=== PATIENT | female | born 1950 | race Caucasian/White ===

== ENCOUNTER 2018-05-27 07:37 | Day surgery (SDC) | payer MEDICARE, OTHER ==
[~2018-05-27 07:37] MED LIST: BUSPAR15 MG OR; CRANBERRY1 TAB OR; PREVPAC OR; PROZAC40 MG OR; PROZAC40 MG PO; TYLENOL650 MG PO; XANAX0.5 MG PO; ZOLOFT50 MG
[2018-05-27 09:45] VITALS: BP 124/63
== END 2018-05-27 09:59 | disposition home or self-care (01) ==
LOC: ENDO 07:37 → ORM 13:00
PROVIDERS: ATTEND Surgery
PROC: 0DB78ZX Excision of Stomach, Pylorus, Via Natural or Artificial Opening Endoscopic, Diagnostic (ICD-10-PCS; principal; 2018-05-27)
PROC: 0DJD8ZZ Inspection of Lower Intestinal Tract, Via Natural or Artificial Opening Endoscopic (ICD-10-PCS; 2018-05-27)
DX: K29.60 Other gastritis without bleeding (principal); K44.9 Diaphragmatic hernia without obstruction or gangrene; R63.4 Abnormal weight loss; R19.7 Diarrhea, unspecified; K64.4 Residual hemorrhoidal skin tags

== ENCOUNTER 2018-12-15 12:06 | Observation (INO) | payer MEDICARE, OTHER ==
[~2018-12-15] VITALS: Ht 154.9 cm; Wt 49.0 kg
--- NOTE | 2018-12-15 12:16 | NUR ---
PT TO ROOM FOR EXAM, PT STATES THAT SHE ALWAYS PASSES OUT WITH BLOOD DRAWS OR IV. STATES CODED ONE TIME IN LAB WHILE HAVING BLOOD DRAWN
[2018-12-15 12:43] LABS: HEMATOCRIT 44.3 % (37.0-47.0); HEMOGLOBIN 14.7 g/dl (12.0-16.0); IMMATURE GRANULOCYTES 0.3 % (0.0-5.0); MEAN CELL VOLUME 94.9 fL CALC (80.0-100.0); MEAN CORPUSCULAR HGB 31.5 pG CALC (26.0-32.0); MEAN CORPUSCULAR HGB CONC 33.2 g/L CALC (32.0-36.0); NEUT# 5.04 thou/uL (2.00-7.15); RED BLOOD COUNT 4.67 mill/uL (4.20-5.60); RED CELL DISTRI WIDTH 13.2 % (11.5-15.5)
--- NOTE | 2018-12-15 12:51 | NUR ---
PT TO RADIOLOGY VIA WC. ABLE TO STAND AND TRANSFER SELF WITHOUT ASSIST OR SOB
--- NOTE | 2018-12-15 12:56 | NUR ---
PT RETURNED FROM RADIOLOGY. ADVISED OF WAIT TIME. NO APPARENT DISTRESS. IV SITE HEALTHY.
--- NOTE | 2018-12-15 13:13 | NUR ---
PT AMBULATED TO BR AND BACK. SATS UPON RETURN AT 84% RA. O2 2L/M VIA NC APPLIED IMPROVED TO 94%. PROVIDER ADVISED.
[2018-12-15 13:20] LABS: ALBUMIN 4.3 g/dL (3.2-5.0); ALKALINE PHOSPHATASE 91 u/l (38-126); ANION GAP 13 (6-22 (CALC)); BUN 12 mg/dL (8-23); BUN/CREATININE RATIO 20 (12-20 (CALC)); CARBON DIOXIDE 25 mmol/l (22-30); CHLORIDE 107 mmol/l (95-108); CREATININE 0.6 mg/dL (0.5-1.0); GFR > 60 ML/MIN (>=60 (CALC)); GFR FOR AFR.AMER. > 60 ML/MIN (>=60 (CALC)); POTASSIUM 3.9 mmol/l (3.5-5.1); SGOT/AST 24 u/l (9-36); SODIUM 141 mmol/l (137-146)
[2018-12-15 13:23] LABS: BILIRUBIN, TOTAL 0.5 mg/dL (0.0-1.4)
[2018-12-15 13:34] LABS: URINE BILIRUBIN - DIPSTICK NEGATIVE (NEGATIVE); URINE BLOOD DIPSTICK SMALL (NEGATIVE); URINE COLOR YELLOW; URINE GLUCOSE - DIPSTICK NEGATIVE (NEGATIVE); URINE KETONE TRACE mg/dL (NEGATIVE); URINE LEUK ESTERASE NEGATIVE (NEGATIVE); URINE NITRITE - DIPSTICK NEGATIVE (Negative); URINE PH 6.5 (4.5-8.0); URINE PROTEIN - DIPSTICK NEGATIVE (NEG-TRACE); URINE UROBILINOGEN - DIPSTICK 0.2 E.U./dL (0.2)
[2018-12-15 13:46] LABS: URINE EPITHELIAL CELLS FEW EPI/hpf (0-FEW)
--- NOTE | 2018-12-15 13:51 | NUR ---
PROVIDER AT BEDSIDE TO FURTHER EVALUATE PT. POC DISCUSSED.
--- NOTE | 2018-12-15 14:18 | NUR ---
BAÑUELOS WALK DONE WITH PATIENT OFF CANNULA 02. WALKED APPROX 100 STEPS, RETURNED TO BED. SAT 82%, HR INCREASED TO 115.
--- NOTE | 2018-12-15 14:34 | NUR ---
EXTENSIVE DISCUSSION WITH PATIENT REGARDING DISEASE PROCESS, HOME O2, AND ADMISSION. PT REPORTS HER SPOUSE IS IN [place] AND NOT DOING WELL. ALSO STATES SHE HAS M[employer]LE HOME PETS SHE MUST ACCOUNT FOR THEIR CARE. ADVISED TO STAY FOR ADMISSION AND FURTHERED CARE.
--- NOTE | 2018-12-15 14:56 | NUR ---
PT MEDICATED W/XANAX PO PER PROVIDER ORDER.PT HI FOWLERS IN BED. O2 2L/M VIA NC CONTINUES. SATS 92%
--- NOTE | 2018-12-15 16:55 | NUR ---
REPORT PROVIDED TO AYANA PARIKH, ON MEDSURG. IV ABT IN PROGRESS. IV SITE HEALTHY. PT TO MEDSURG VIA STRETCHER IN STABLE CONDITION.
[2018-12-15 17:06] VITALS: BP 132/61
--- NOTE | 2018-12-15 17:29 | NUR ---
PT HAD COME IN VIA STRETCHER. WAS A STAND BY ASSIST TO SCALE THEN TO BED. ASSESSMENT DONE. PT IS A&O X3. TELE IN PLACE. PT DENIES PAIN AT THIS TIME. O2 AT 2L VIA NC. SAFETY PRECAUTIONS REINFORCED AND CALL LIGHT IN REACH.
[2018-12-15 20:02] VITALS: BP 119/65
--- NOTE | 2018-12-15 20:14 | NUR ---
ASSESSMENT COMPLETED; O2 INFUSING PER NC @2LITERS/MIN PER ORDER; NO DISTRESS NOTED; REPORTS PRODUCTIVE COUGH, NONE TO INSPECT AT THIS TIME. UPDATED ON POC AND VERBALIZES UNDERSTANDING. ENCOURAGED TO CALL FOR ANY NEEDS. CALL LIGHT IS IN REACH.
--- NOTE | 2018-12-15 22:15 | NUR ---
PT. IS RESTING IN BED WITH EYES CLOSED. RESP. EVEN AND UNLABORED. CALL LIGHT IS IN REACH.
[2018-12-15 23:50] VITALS: BP 108/56
--- NOTE | 2018-12-15 23:50 | NUR ---
SCHEDULED SOLU-MEDROL GIVEN AND VSS; DENIES NEEDS AND VOICES NO CONCERNS. CALL LIGHT IS IN REACH.
--- NOTE | 2018-12-16 02:10 | NUR ---
PT. RESTING IN BED WITH EYES CLOSED; NO DISTRESS NOTED; CALL LIGHT IS REACH. WILL CONTINUE TO MONITOR.
[2018-12-16 03:37] VITALS: BP 106/50
--- NOTE | 2018-12-16 03:37 | NUR ---
VSS; NO DISTRESS NOTED; PT. ASSISTED TO AND FROM THE BATHROOM. PT. REPORTS SHE FEELS THOUGH SHE MAY BE GETTING A URINARY TRACT INFECTION, URINE INSPECTED AND IS CLEAR DARK YELLLOW; ENCOURAGED ORAL INTAKE AND CRANBERRY JUICE PROVIDED; PT. IS INSTRUCTED IF SYMPTOMS PERSIST TO SPEAK WITH MD IN AM.
[2018-12-16 06:00] LABS: HEMATOCRIT 38.4 % (37.0-47.0); IMMATURE GRANULOCYTES 0.9 % (0.0-5.0); MEAN CELL VOLUME 97.7 fL CALC (80.0-100.0); MEAN CORPUSCULAR HGB 32.3 pG CALC (26.0-32.0); MEAN CORPUSCULAR HGB CONC 33.1 g/L CALC (32.0-36.0); NEUT# 8.15 thou/uL (2.00-7.15); RED BLOOD COUNT 3.93 mill/uL (4.20-5.60); RED CELL DISTRI WIDTH 13.2 % (11.5-15.5)
[2018-12-16 06:10] LABS: HEMOGLOBIN 12.7 g/dl (12.0-16.0)
[2018-12-16 06:23] LABS: ALBUMIN 3.7 g/dL (3.2-5.0); ALKALINE PHOSPHATASE 77 u/l (38-126); AMYLASE 62 u/l (30-110); ANION GAP 13 (6-22 (CALC)); BUN 19 mg/dL (8-23); BUN/CREATININE RATIO 35 (12-20 (CALC)); CARBON DIOXIDE 22 mmol/l (22-30); CHLORIDE 109 mmol/l (95-108); CREATININE 0.5 mg/dL (0.5-1.0); GFR > 60 ML/MIN (>=60 (CALC)); GFR FOR AFR.AMER. > 60 ML/MIN (>=60 (CALC)); LIPASE 134 u/l (23-300); MAGNESIUM 1.8 mg/dL (1.6-2.3); POTASSIUM 3.8 mmol/l (3.5-5.1); SGOT/AST 21 u/l (9-36); SODIUM 139 mmol/l (137-146)
[2018-12-16 06:26] LABS: BILIRUBIN, TOTAL 0.2 mg/dL (0.0-1.4)
[2018-12-16 07:26] VITALS: BP 108/53
--- NOTE | 2018-12-16 08:00 | NUR ---
ASSESSMENT DONE. TELE IN PLACE. PT IS A&O X3. PT DENIES PAIN AT THIS TIME. O2 AT 2L VIA NC. CALL LIGHT IN REACH.
[2018-12-16 11:13] VITALS: BP 107/60
--- NOTE | 2018-12-16 12:13 | NUR ---
PT IS EATING HER LUNCH. PT STATED SHE WANTS TO GO HOME. WAITING FOR DOCTOR. PT DENIES ANY OTHER NEEDS AT THIS TIME. CALL LIGHT IN REACH.
[2018-12-16] MEDS ORDERED: LEVAQUIN750 MG PO (15:29)
[2018-12-16] MEDS ORDERED: PREDNISONE10 MG PO (15:29)
[2018-12-16] MEDS ORDERED: IPRATROPIU0.5 MG/3 M IN (15:29)
[2018-12-16 16:00] VITALS: BP 134/61
--- NOTE | 2018-12-16 16:07 | NUR ---
NO S/S OF DISTRESS NOTED AT THIS TIME. PT STATED READY TO GO BUT WAITING FOR THEM TO BRING 02 SO SHE CAN TAKE IT HOME. CALL LIGHT IN REACH.
--- NOTE | 2018-12-16 17:38 | NUR ---
Discharge instructions given. Patient verbalizes understanding of same. Discharged in stable condition via Wheelchair to Home with staff. All belongings sent with pt.
== END 2018-12-16 17:28 | disposition home or self-care (01) ==
LOC: ED 12:06 → ED-I 14:00 → ED 15:55 → MS2 15:56
PROVIDERS: ADMIT Internal Medicine Nephrology; ATTEND Internal Medicine Nephrology
DX: J44.1 Chronic obstructive pulmonary disease with (acute) exacerbation (principal); J96.21 Acute and chronic respiratory failure with hypoxia; I10 Essential (primary) hypertension; F41.9 Anxiety disorder, unspecified; F32.9 Major depressive disorder, single episode, unspecified; F17.210 Nicotine dependence, cigarettes, uncomplicated; Z86.74 Personal history of sudden cardiac arrest; Z95.0 Presence of cardiac pacemaker; R06.02 Shortness of breath; R05 Cough
CPT/HCPCS: J1650

== ENCOUNTER 2023-04-27 09:19 | Emergency (ER) | payer MEDICARE, OTHER ==
[~2023-04-27] VITALS: Ht 154.9 cm; Wt 42.3 kg
[~2023-04-27 09:19] MED LIST changes: +IPRATROPIU0.5 MG/3 M IN; +LEVAQUIN750 MG PO; +PREDNISONE10 MG PO
[2023-04-27 09:34] VITALS: BP 147/72
[2023-04-27 10:00] VITALS: BP 147/70
[2023-04-27] MEDS ORDERED: AMOX/K CLAV875 M1 PO (10:39)
[2023-04-27] MEDS ORDERED: PROBIOTIC FORMU1 CAP PO (10:39)
[2023-04-27 10:48] VITALS: BP 138/72
== END 2023-04-27 10:50 | disposition home or self-care (01) ==
LOC: ED 09:19
DX: K04.7 Periapical abscess without sinus (principal); I10 Essential (primary) hypertension; J44.9 Chronic obstructive pulmonary disease, unspecified; F32.A Depression, unspecified; F17.290 Nicotine dependence, other tobacco product, uncomplicated; Z95.0 Presence of cardiac pacemaker

== ENCOUNTER 2024-07-09 09:29 | Emergency (ER) | payer MEDICARE, OTHER ==
[~2024-07-09] VITALS: Ht 154.9 cm; Wt 42.6 kg
[2024-07-09] VITALS (10 sets, daily range): BP systolic 144–165; BP diastolic 78–110
[~2024-07-09 09:29] MED LIST changes: +ABILIFY5 MG PO; +AMOX/K CLAV875 M1 PO; +ASPIRIN325 MG PO; +ATOMOXETINE40 MG PO; +BACTRIM DS1 TAB PO; +CLONAZEPAM1 MG PO; +DOXYCYCLINE100 MG PO; +MONTELUKAST SOD10 MG PO; +PAROXETINE10 MG PO; +PROBIOTIC FORMU1 CAP PO; +PROZAC10 MG PO; +PROZAC20 MG PO; +REXULTI1 MG PO; +TRAZODONE100 MG PO; +XANAX1 MG PO
[2024-07-09 10:18] LABS: BASO% 0.5 % (0-3); EOS% 0.1 % (0-8); HEMATOCRIT 50.6 % (37.0-47.0); HEMOGLOBIN 16.6 g/dl (12.0-16.0); IMMATURE GRANULOCYTES 0.8 % (0.0-5.0); LYMPH% 13.5 % (15-41); MEAN CELL VOLUME 96.2 fL CALC (80.0-100.0); MEAN CORPUSCULAR HGB 31.6 pG CALC (26.0-32.0); MEAN CORPUSCULAR HGB CONC 32.8 g/dL CAL (32.0-36.0); MONO% 5.9 % (2-13); NEUT# 7.47 thou/uL (2.00-7.15); NEUT% 79.2 % (42-76); RED BLOOD COUNT 5.26 mill/uL (4.20-5.60); RED CELL DISTRI WIDTH 14.4 % (11.5-15.5)
[2024-07-09 10:28] LABS: ALBUMIN 4.7 g/dL (3.2-5.0); CREATININE 0.8 mg/dL (0.5-1.0); POTASSIUM 3.5 mmol/l (3.5-5.1); TOTAL PROTEIN 7.4 g/dL (6.3-8.2)
[2024-07-09 10:37] LABS: BILIRUBIN, TOTAL 0.6 mg/dL (0.02-1.3)
[2024-07-09 10:59] LABS: TSH, 3RD GENERATION 1.71 uIU/mL (0.47 - 4.68)
[2024-07-09 12:18] LABS: URINE BILIRUBIN - DIPSTICK Negative (NEGATIVE); URINE BLOOD DIPSTICK Trace-intact (NEGATIVE); URINE GLUCOSE - DIPSTICK Negative (NEGATIVE); URINE KETONE Negative (NEGATIVE); URINE LEUK ESTERASE Negative (NEGATIVE); URINE NITRITE - DIPSTICK Negative (Negative); URINE PROTEIN - DIPSTICK Negative (NEG-TRACE); URINE UROBILINOGEN - DIPSTICK 0.2 E.U./dL (0.2)
[2024-07-09 12:27] LABS: URINE COLOR Yellow
[2024-07-09] MEDS ORDERED: AMBIEN5 MG PO (12:33)
== END 2024-07-09 12:36 | disposition home or self-care (01) ==
LOC: ED 09:29
PROVIDERS: Family Medicine
DX: G47.00 Insomnia, unspecified (principal); F41.0 Panic disorder [episodic paroxysmal anxiety]; F32.A Depression, unspecified; I10 Essential (primary) hypertension; J44.9 Chronic obstructive pulmonary disease, unspecified; F17.210 Nicotine dependence, cigarettes, uncomplicated; Z95.0 Presence of cardiac pacemaker